=== PATIENT | female | born 1960 | race Caucasian/White ===

== ENCOUNTER → 2018-06-02 08:57 | Outpatient (CLI) | payer BC, SELFPAY ==
--- NOTE | 2018-06-02 09:03 | US_ITS ---
STUDY: THYROID ULTRASOUND REASON FOR EXAM: Female, 58 years old. Thyroid enlargement TECHNIQUE: Ultrasound evaluation of the thyroid was performed with real-time and static weber-scale imaging. COMPARISON: 12/04/2014 FINDINGS: RIGHT LOBE: The right lobe of the thyroid gland measures 4.9 x 1.7 x 1.7 cm. There is a homogeneous echotexture. There are no demonstrated solid, cystic or complex lesions. LEFT LOBE: The left lobe of the thyroid gland measures 5.2 x 1.4 x 1.0 cm. There is a 3 mm anechoic cyst of the inferior left thyroid lobe is stable.. There are no demonstrated solid, cystic or complex lesions. ISTHMUS: The isthmus measures 4 mm. The regional lymph nodes are normal. US/Thyroid IMPRESSION: 1. Stable exam. No new or enlarging thyroid cyst/nodule. 2. Stable 3 mm left thyroid colloidal cyst. 3. Mild thyromegaly. Electronically Signed: Rajesh Romero MD at 11:21 EDT , Service support ,
== END ==
PROVIDERS: Family Provider Internal Medicine; PCP Internal Medicine; Referring Provider Internal Medicine; Visit Provider Internal Medicine
DX: E04.9 Nontoxic goiter, unspecified (principal)
CPT/HCPCS: 76536

== ENCOUNTER → 2019-02-07 08:41 | Outpatient (CLI) | payer BC, SELFPAY ==
--- NOTE | 2019-02-07 08:45 | BI_ITS ---
MAMMOGRAPHY - UNILATERAL DIAGNOSTIC: LEFT BREAST REASON FOR EXAM: Female, 58 years old. Six-month follow-up examination for nodule in the left breast. PERTINENT HISTORY: Non-contributory. TECHNIQUE: Digital unilateral breast bernice (3D mammographic acquisition) in the CC and MLO projections. 2-D mediolateral oblique (MLO) and craniocaudad (CC) views of both breasts were obtained. CAD: Full Field Digital Mammography with Computer Added Detection was performed. COMPARISON: Comparison is made with prior outside examination of May 30, 2018. FINDINGS: Breast Composition: There are scattered areas of fibroglandular density. There are no dominant masses or suspicious calcifications. No other significant abnormalities are identified. BI/DIAG MAMM W/CAD, UNILAT IMPRESSION: Negative unilateral diagnostic mammogram. Correlation with ultrasound of the lateral aspect of the left breast is recommended for further evaluation. ASSESSMENT CATEGORY: BIRADS Category 0: Incomplete. Need additional imaging evaluation. A letter regarding these results will be sent to the patient by the facility within 30 days. Approximately 10% of breast cancers are not detected by mammography. A normal mammogram should not delay biopsy of a clinically suspicious abnormality. Electronically Signed: Yonny Hutner, at 10:33 EST , Service support ,
--- NOTE | 2019-02-07 08:45 | US_ITS ---
STUDY: ULTRASOUND BREAST - LEFT REASON FOR EXAM: Female, 58 years old. Abnormal screening mammogram. TECHNIQUE: Axial and longitudinal images of the LEFT breast were performed with a high resolution ultrasound transducer. # OF IMAGES: 56 COMPARISON: Comparison is made with prior mammogram dated February 07, 2019. FINDINGS: LEFT Breast: The lateral half of the left breast was examined by ultrasound. There is homogeneous fibroglandular tissue. No sonographic abnormality is seen. US/Breast Limited Unilateral IMPRESSION: No sonographic abnormality is seen. ASSESSMENT CATEGORY: BIRADS Category 1: Negative. A letter regarding these results will be sent to the patient by the facility within 30 days. Electronically Signed: Yonny Hunter, at 15:00 EST , Service support ,
== END ==
PROVIDERS: Family Provider Internal Medicine; PCP Internal Medicine; Referring Provider Surgery; Visit Provider Surgery
DX: N60.12 Diffuse cystic mastopathy of left breast (principal); N60.11 Diffuse cystic mastopathy of right breast; R92.8 Other abnormal and inconclusive findings on diagnostic imaging of breast
CPT/HCPCS: 76642; 77061; 77065; G0279

== ENCOUNTER → 2019-05-16 11:28 | Outpatient (CLI) | payer BC, SELFPAY ==
[2019-05-16 11:35] LABS: Absolute Lymphocyte Count 1.69 X10^3/uL (0.83-4.51); Absolute Neutrophil Count 4.6 X10^3/uL (2.0-7.7); Basophil# 0.03 X10^3/uL; Basophil% 0.4 % (0-1); Eosinophil# 0.19 X10^3/uL; Eosinophils% 2.7 % (0-5); Hematocrit 44.5 % (37-47); Lymphocyte # 1.69 X10^3/ul (4.0); Mean Corp Hgb Conc 31.5 g/dL (32-36); Mean Corpuscular Hgb 27.7 pg (27.0-32.0); Mean Corpuscular Volume 88.1 fL (81-99); Mean Platelet Vol. 11.3 fl (6.2-12.0); Monocyte# 0.54 X10^3/uL; Monocyte% 7.7 % (0-10); NRBC Flagged by Analyzer 0 % (0-5); Neutrophil # 4.56 X10^3/uL (2.7-7.7); Neutrophil % 64.9 % (47-70); Platelet Count 239 K/mm3 (150-450); RBC Distribution Width CV 14.5 % (11.6-14.6); RBC Distribution Width SD 46.5 fl (35.1-43.9); Red Blood Count 5.05 M/mm3 (4.2-5.4)
--- NOTE | 2019-05-16 11:40 | CT_ITS ---
STUDY: CT ABDOMEN AND PELVIS WITH CONTRAST REASON FOR EXAM: Female, 59 years old. RLQ PAIN X 2 DAYS RADIATION DOSAGE (If Supplied By Facility): CTDIvol = ( 16.29 ) mGy, DLP = ( 1196.49 ) mGycm COMPARISON: None TECHNIQUE: A CT scan of the abdomen and pelvis was performed with IV contrast contrast administration. Oral contrast was also administered. Coronal and sagittal reconstruction images were reviewed. This exam was performed according to our departmental dose-optimization program, which includes automated exposure control, adjustment of the mA and/or kV according to patient size and/or use of iterative reconstruction technique. FINDINGS: The lung bases and the base of the heart are normal. The liver is normal.The spleen is normal.The adrenal glands are normalThe head, body, and tail of the pancreas are normal. The right and left kidneys were examined and appear to be normal. Both ureters appear to be normal, and no obstructive uropathy is identified. The abdominal aortal is normal along its course and distribution. No paraortic lymphadenopathy is seen. No abdominal masses or lesions are seen. The CT scan of the pelvis was then reviewed. The common iliac vessels, external iliac vessels, and common femoral vessels are normal along their course and distribution No pelvis masses or lesions are seen. The appendix is abnormal and measures 1.4 cm in maximal dimension. There is fluid noted within the central portions of the appendix and these findings are consistent with acute appendicitis. No pericecal inflammatory reaction is seen. Bone scanning windows of the lumbar spine and pelvis were reviewed in the coronal and sagittal planes and appear to be normal. CT/Abdomen/Pelvis WITH Contrast IMPRESSION: Acute appendicitis Electronically Signed: Urban Casillas, at 14:30 EST Tel , Service support ,
[2019-05-16 11:43] LABS: Erythrocyte Sedimentation Rate 30 mm/hr (0-30)
[2019-05-16 11:46] LABS: ALB/GLOB Ratio 1.1 RATIO (0.9-2.4); AST(SGOT) 15 U/L (15-37); Alanine Aminotransfer ALT/SGPT 29 U/L (13-56); Alkaline Phosphatase 98 U/L (45-117); Anion Gap 5 (5-15); BUN 18 mg/dL (7-18); BUN/Creat Ratio 14.5 RATIO (10-20); Calcium,Total 9.2 mg/dL (8.5-10.1); Chloride 103 mmol/L (98-107); Creatinine, Serum 1.24 mg/dL (0.55-1.02); EST Glomerular Filtration Rate 47 mL/min (>60); Est Glom Filt Rate - Afr Amer 57 mL/min (>60); Globulin 3.5 g/dL (2.2-4.2); Glucose 88 mg/dL (74-106); Potassium 3.5 mmol/L (3.5-5.1); Protein, Total 7.5 g/dL (6.4-8.2); Sodium Level 139 mmol/L (136-145)
== END ==
PROVIDERS: PCP Internal Medicine; Referring Provider Internal Medicine; Visit Provider Internal Medicine
DX: R10.31 Right lower quadrant pain (principal)
CPT/HCPCS: 74177; 80053; 85025; 85652; 86140; Q9967

== ENCOUNTER 2019-05-16 15:05 | Observation (INO) | payer BC, SELFPAY ==
[2019-05-16] VITALS (9 sets, daily range): BP systolic 97–142; BP diastolic 53–86; PULSE 53–82; RESP 16–18; TEMP 35.8–36.8; O2SAT 94–98; BMI 34.1; BMI 34.8
--- NOTE | 2019-05-16 15:33 | EKG12_ITS ---
Test Reason : PRE OP Blood Pressure : / mmHG Vent. Rate : 062 BPM Atrial Rate : 062 BPM P-R Int : 146 ms QRS Dur : 092 ms QT Int : 426 ms P-R-T Axes : 036 -08 032 degrees QTc Int : 432 ms Normal sinus rhythm Incomplete left bundle branch block Confirmed by RAUL FORBES, DANA ([id number]), online editor BOBBY PICKENS ([id number]) on 05/20/2019 9:50:24 AM Referred By: KWAME Confirmed By:DANA CARTER MD
--- NOTE | 2019-05-16 15:35 | ED.VISSUMM ---
- ER Visit Summary Date of Service: 05/16/19 Chief Complaint: Abdominal pain History of Present Illness: The patient is a 59 F presenting with abdominal pain. She states this started on Monday. She has had abdominal pain and nausea. She denies vomiting or diarrhea. Denies fever. She had a routine visit scheduled with her PCP today. She had abdominal pain at that time and a CT scan was ordered as an outpatient. CT abdomen pelvis shows acute appendicitis. She was then sent to the ED for further evaluation. Physical Examination: Vitals are stable. Patient is afebrile. Alert no acute distress. HEENT exam is unremarkable. Neck is supple. Lungs are clear and equal bilaterally. Heart is regular rate and rhythm. Abdomen is soft right lower quadrant tenderness with no rebound or guarding Extremities are unremarkable. Skin is warm and dry. No focal neurologic deficit. Remainder of exam is unremarkable. Emergency Department Course and Treatment: Patient was given morphine, Zofran, and Zosyn. CT with contrast shows acute appendicitis. Labs are pending. Discussed with Dr. Kitchen and Dr. Marquez. Patient will be admitted. Disposition: Admission Impression: Acute appendicitis This note was generated with [employer] dictation software. It may contain incorrect words, spelling, and punctuation that were not noted in review of the chart prior to signing ED Disposition - Plan for ED Patient: Referrals: Oralia Kitchen DO [Primary Care Provider] -
[2019-05-16] MEDS: Morphine 4 MG/ML Syringe IV (15:59)
[2019-05-16] MEDS: Ondansetron 4 MG/2 ML Vial IV (15:59)
[2019-05-16 16:20] LABS: Absolute Lymphocyte Count 1.78 X10^3/uL (0.83-4.51); Basophil# 0.03 X10^3/uL; Basophil% 0.5 % (0-1); Eosinophil# 0.16 X10^3/uL; Eosinophils% 2.5 % (0-5); Hematocrit 42.5 % (37-47); Hemoglobin 13.7 g/dL (12.0-15.0); Lymphocyte # 1.78 X10^3/ul (4.0); Lymphocyte % 27.6 % (19-41); Mean Corp Hgb Conc 32.2 g/dL (32-36); Mean Corpuscular Hgb 28.6 pg (27.0-32.0); Mean Corpuscular Volume 88.7 fL (81-99); Mean Platelet Vol. 10.9 fl (6.2-12.0); Monocyte# 0.46 X10^3/uL; Monocyte% 7.1 % (0-10); NRBC Flagged by Analyzer 0 % (0-5); Platelet Count 225 K/mm3 (150-450); RBC Distribution Width CV 14.2 % (11.6-14.6); RBC Distribution Width SD 45.8 fl (35.1-43.9); Red Blood Count 4.79 M/mm3 (4.2-5.4); White Blood Count 6.5 K/mm3 (4.4-11.0)
[2019-05-16 16:26] LABS: Anion Gap 6 (5-15); BUN 18 mg/dL (7-18); BUN/Creat Ratio 15.4 RATIO (10-20); Calcium,Total 9.3 mg/dL (8.5-10.1); Chloride 103 mmol/L (98-107); Creatinine, Serum 1.17 mg/dL (0.55-1.02); EST Glomerular Filtration Rate 50 mL/min (>60); Est Glom Filt Rate - Afr Amer 61 mL/min (>60); Estimated Creatinine Clearance 47.87 ml/min; Glucose 83 mg/dL (74-106); Potassium 3.3 mmol/L (3.5-5.1); Sodium Level 138 mmol/L (136-145)
--- NOTE | 2019-05-16 16:44 | ED.RN ---
called report to A/C. ok to bring pt. Dr. Bruno has not seen yet.
--- NOTE | 2019-05-16 17:09 | PCM.HP.STD ---
History of Present Illness Date of Admission: 05/16/19 The patient is a 59 year old F started having epigastric abdominal pain starting Monday night did continue yesterday but did move to the right lower quadrant. Patient rated the pain a 6/10. Patient did go to her PCPs office where labs were drawn and patient had a CT which was ordered. CT abdomen pelvis was consistent with acute appendicitis, with blood counts within normal range. Patient was sent to the ER. Patient was given Zosyn IV in the ER. Patient states she had some nausea yesterday denies any nausea currently. Patient's white blood count still within normal limits. Past Medical History Allergies Sulfa (Sulfonamide Antibiotics) Allergy (Verified 05/16/19 15:05) Hives Home Medications: Ambulatory Orders Medication Instructions Recorded Albuterol IH (ProAir) [Proair Hfa] 1 - 2 puff INHALATION Q6H PRN 05/16/19 Esomeprazole Mag Trihydrate 20 mg PO DAILY 05/16/19 [Nexium] Hydrochlorothiazide 12.5 mg PO DAILY 05/16/19 L.acidoph,Paracasei, B.lactis 1 cap PO DAILY 05/16/19 [Probiotic] Loratadine [Claritin] 10 mg PO DAILY 05/16/19 Losartan Potassium [Cozaar] 50 mg PO DAILY 05/16/19 Montelukast Sodium [Singulair] 10 mg PO QHS 05/16/19 Surgical History: - - tubal ligation Psychiatric History: No pertinent psych hx 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 Smoking Status: Never smoker - *Family History Maternal History Items: No pertinent history VTE Information - Inpt Only VTE Present on Admission: Yes VTE Mechan Device Prophylaxis: SCD's - Physical Exam Vitals/I&O's: Vital Signs Temp Pulse Resp BP Pulse Ox 98.1 F 68 16 108/54 L 98 05/16/19 16:34 05/16/19 16:34 05/16/19 16:34 05/16/19 16:34 05/16/19 16:34 Oxygen Delivery Method Room Air Weight: 211 lb 10.3 oz Body Mass Index (BMI) 34.1 Intake and Output for Last 24 Hours 05/14/19 05/15/19 05/16/19 23:59 23:59 23:59 Intake Total 50 / 50 Balance 50 / 50 General: Alert, Oriented x3, Cooperative, No apparent distress HEENT: Atraumatic Lungs: Normal air movement Cardiovascular: Regular rate Abdomen: Soft, Non-Distended, Tender - Right abdomen greatest in the right lower quadrant, no peritoneal signs Extremities: No clubbing, No cyanosis, No edema Neurological: Cranial nerves II-XII grossly intact Psych/Mental Status: Normal Affect Laboratory Results 05/16/19 16:00: WBC 6.5, RBC 4.79, Hgb 13.7, Hct 42.5, MCV 88.7, MCH 28.6, MCHC 32.2, RDW Std Deviation 45.8 H, RDW Coeff of John 14.2, Plt Count 225, MPV 10.9, Immature Gran % (Auto) 0.300, Neut % (Auto) 62.0, Lymph % (Auto) 27.6, [place] % (Auto) 7.1, Eos % (Auto) 2.5, Baso % (Auto) 0.5, Absolute Neuts (auto) 4.0, Absolute Lymphs (auto) 1.78, Nucleated RBC % 0 05/16/19 16:00: Sodium 138, Potassium 3.3 L, Chloride 103, Carbon Dioxide 29.0, Anion Gap 6, BUN 18, Creatinine 1.17 H, Estim Creat Clear Calc 47.87, Est GFR (MDRD) Af Amer 61, Est GFR (MDRD) Non-Af 50 L, BUN/Creatinine Ratio 15.4, Glucose 83, Calcium 9.3 Assessment/Plan 59-year-old female with acute appendicitis 1. Discussed procedure laparoscopic appendectomy, possible open, possible bowel resection along with the risk but not limited to bleeding, infection/abscess, injury to another organ (small bowel, colon, etc.), adhesion, hernia at incision sites, and anesthesia. Patient and her no further questions at this time. Alvina Bruno M.D. Pager: [phone] [facility] [address] [place] [address], [address] [place] [address] Office: [phone]
--- NOTE | 2019-05-16 17:10 | APP_PTH ---
PATIENT: ELIER [place] LOC: [facility] U#:[id number] AGE/SX: 59/F ROOM: [facility] RE05/16/[address]: Dr. Alvina Bruno MD : 1960 BED: 1 DIS: 05/17/2019 SPEC #: [id number] RECD: 05/17/19 10:01 STATUS: ALEXA REArlyn #: [id number] AILYN: 05/16/19 17:[address]: Alvina Bruno DEPT: SURGICAL PATHOLOGY RECD BY: Krishna Sawyer ENTERED: 05/17/19 11:30 SP TYPE: APPENDIX OTHR DR: Dr. Oralia Kitchen, DO Tissues: Appendix, NOS Procedures: Surgery Specimen Level III HEADER OPERATION: Laparoscopic appendectomy PRE-OP DIAGNOSIS: Acute appendicitis TISSUE SUBMITTED: Appendix MICROSCOPIC DIAGNOSIS Appendix, appendectomy: Acute appendicitis and periappendicitis. SJ:constantino 3/2/20 MICROSCOPIC DESCRIPTION Slides are reviewed. GROSS DESCRIPTION Received is one container labeled with the patient's name and designated appendix. The specimen consists of an appendix measuring 7 cm in length and up to 1.3 cm in diameter. The attached periappendiceal adipose tissue measures up to 3 cm in width. The serosa is congested. No obvious perforation is identified. The lumen is filled with grayish turbid fluid. No fecalith is identified. Multi Craft Maintenance Technician sections are submitted in one cassette. / SJ:constantino 05/17/19 TC:2 [facility]: [id number]
[2019-05-16] MEDS: Bupiv/Epi 0.5% Mpf 30 ML Vial (18:31)
--- NOTE | 2019-05-16 18:39 | PCM.OPRPT ---
Report of Operation Date of Procedure: 05/16/19 Pre-Operative Diagnosis: Acute appendicitis Post-Operative Diagnosis: Same Surgery/Procedure Performed:: Laparoscopic appendectomy Type of Anesthesia:: General/Supplemental Anesthesiologist: Uziel Sylvester Special Medications: Zosyn 3.375 g IV x1 given in the ER for acute appendicitis Specimen's removed: Appendix Estimated Blood Loss (mL): < 10 CC Fluids Replaced: 300 CC Description of Procedure: Indications: 59-year-old FEmale presented to the ER with new right lower quadrant pain this morning. On workup she was found to have acute appendicitis on CT and a white blood cell count within normal limits. Patient was started on antibiotics in the ER for acute appendicitis-Zosyn IV x1 Description of the procedure: The patient was placed on operating table in supine position. General anesthesia was induced. A timeout was completed verifying correct patient, procedure, position and special equipment prior to beginning procedure. Abdomen was prepped and draped in usual sterile fashion. Incision was made in the natural skin line above the umbilicus with a 15 blade scalpel. The fascia was elevated and incised. Entry into the peritoneum was confirmed visually and no bowel was noted in the vicinity of the incision. The Turner trocar was placed under direct vision. Abdomen insufflated with a pressure of 12-15 mmHg. Patient tolerated insertion well. The scope was inserted and the abdomen inspected. No injuries from initial trocar placement were noted. Minimal amount of fluid was seen in the right lower quadrant. An direct visualization 2 -5 mm trocars were placed one above the symphysis pubis and below the hairline and one in the left lower quadrant lateral to the rectus muscle. Care is taken to avoid injury to the bladder and inferior epigastric vessels. The table was placed in Trendelenburg position with the right side elevated. The appendix was grasped with atraumatic grasper and elevated. It was noted to be inflamed. A window was developed in the mesoappendix at the point between the base of the appendix and the cecum. An endoscopic 45 mm linear cutting stapler blue load was then used to divide and staple the base of the appendix. Enseal was used to divide the mesoappendix The appendix was withdrawn into the Turner trocar after being placed endoscopically retrieval bag. Appendix was sent to pathology. The appendiceal stump was then irrigated and hemostasis was assured. Fluid was suctioned no other pathology was identified. Secondary trochars were removed under direct visualization. No bleeding was noted trocar sites. The laparoscope withdrawn and the umbilical trocar removed. The abdomen was allowed to collapse. Local anesthesia of 30 mL of 0.5% Marcaine was used at the incision sites. The umbilical trocar site was closed with the [id number] 0 Vicryl suture. The skin was closed up to clear sutures of 4-0 Monocryl and Steri-Strips. The patient was extubated. The patient tolerated the procedure well and was taken to the postanesthesia care unit in satisfactory condition. - Complications NONE
--- NOTE | 2019-05-16 18:43 | DCINST_ITS ---
Discharge Diet: Light diet - advance as tolerated Discharge Activity: May not drive while taking narcotic pain medications. May shower in (days): 1 - Okay to shower in 1 day from surgery Lifting Restrictions: No lifting greater than 20 pounds x 2 weeks Call your doctor if your incision/area has: Continuous Slow Oozing, Sudden Increased Bleeding, Increased Pain/ Swelling, Increased Redness, Foul Smelling Discharge, Swelling at the incision site Call your doctor if you observe: Fever of 101 or Higher Remove Dressing in (days):: 1 - Okay to remove OpSite tomorrow after shower, keep Steri-Strips on for 7 to 10 days if they do not fall off in 10 days okay to remove Additional Instructions: Okay to take ibuprofen 400-600 mg PO q6hr PRN along with the Tylenol #3's. Avoid Tylenol. Take all pain meds with food. Tylenol #3's can cause constipation recommend taking daily stool softener (i.e. Colace/docusate) while taking the pain meds. Recommend starting some (a couple doses) MiraLAX in 1 to 2 days if no bowel movement. If still no bowel movement on day recommend taking magnesium citrate half the bottle and waiting 4-6 hours if still no results take the other half the bottle. Allergies/Adverse Reactions: Allergies Sulfa (Sulfonamide Antibiotics) Allergy (Verified 05/16/19 15:05) Hives Medications to take at Discharge Acetaminophen/Codeine #3 [Tylenol#3] 1 - 2 tab PO Q4H PRN PRN 4 Days #20 tab 05/16/19 Albuterol IH (ProAir) [Proair Hfa] 1 - 2 puff INHALATION Q6H PRN 05/16/19 Esomeprazole Mag Trihydrate [Nexium] 20 mg PO DAILY 05/16/19 Hydrochlorothiazide 12.5 mg PO DAILY 05/16/19 L.acidoph,Paracasei, B.lactis [Probiotic] 1 cap PO DAILY 05/16/19 Loratadine [Claritin] 10 mg PO DAILY 05/16/19 Losartan Potassium [Cozaar] 50 mg PO DAILY 05/16/19 Montelukast Sodium [Singulair] 10 mg PO QHS 05/16/19 The following prescriptions were given: Acetaminophen/Codeine #3 [Tylenol#3] 1 - 2 tab PO Q4H PRN PRN 4 Days #20 tab PRN Reason: Pain Score 4-10 Transmission Status: Received by [id number] Primary Care Physician: Oralia Kitchen DO [Primary Care Provider] - Test Results: Test results from this visit will be discussed in further detail at your follow- up appointment, if applicable. Please Follow Up With: Alvina Bruno MD - Any concerns after 5 PM and on the weekends call [phone] When: Follow-up in the office in 2 weeks- call for an appointment [phone] Proposed Discharge Date: 05/16/19
--- NOTE | 2019-05-16 20:06 | CPS ---
Patient not in room at this time. Family instructed on use of IS.
[2019-05-16] MEDS: Lactated Ringers 1,000 ML 125 ML IV (22:41)
--- NOTE | 2019-05-17 01:40 | NURSING ---
Pt up to bathroom and attempted to urinate, only able to void 50cc at this time. Pt denies discomfort. Assisted back to bed.
[2019-05-17 04:15] VITALS: BP 123/61; PULSE 65; RESP 18; TEMP 36.8; O2SAT 95
[2019-05-17] MEDS: Acetaminophen/Codeine #3 Tablet PO (04:56)
[2019-05-17] MEDS: Lactated Ringers 1,000 ML 125 ML IV (06:14)
--- NOTE | 2019-05-17 07:36 | PCM.PN.SRG ---
Subjective: Patient tolerating clears, pain controlled, ambulating - Physical Exam Vitals/I&O's: Vital Signs Temp Pulse Resp BP Pulse Ox 98.2 F 65 18 123/61 H 95 05/17/19 04:15 05/17/19 04:15 05/17/19 04:15 05/17/19 04:15 05/17/19 04:15 Oxygen Delivery Method Room Air Weight: 215 lb 13.321 oz Body Mass Index (BMI) 34.8 Intake and Output for Last 24 Hours 05/15/19 05/16/19 05/17/19 23:59 23:59 23:59 Intake Total 50 / 200 1893.75 / 1893.75 Output Total 300 / 300 Balance 50 / 200 1593.75 / 1593.75 General: Alert, Oriented x3, Cooperative, No apparent distress HEENT: Atraumatic Lungs: Normal air movement Cardiovascular: Regular rate Abdomen: Soft, Distended - Mild, Tender - Near incisions clean dry and intact with op sites, no peritoneal signs Extremities: No clubbing, No cyanosis, No edema Neurological: Cranial nerves II-XII grossly intact Laboratory Results 05/16/19 16:00: WBC 6.5, RBC 4.79, Hgb 13.7, Hct 42.5, MCV 88.7, MCH 28.6, MCHC 32.2, RDW Std Deviation 45.8 H, RDW Coeff of John 14.2, Plt Count 225, MPV 10.9, Immature Gran % (Auto) 0.300, Neut % (Auto) 62.0, Lymph % (Auto) 27.6, [place] % (Auto) 7.1, Eos % (Auto) 2.5, Baso % (Auto) 0.5, Absolute Neuts (auto) 4.0, Absolute Lymphs (auto) 1.78, Nucleated RBC % 0 05/16/19 16:00: Sodium 138, Potassium 3.3 L, Chloride 103, Carbon Dioxide 29.0, Anion Gap 6, BUN 18, Creatinine 1.17 H, Estim Creat Clear Calc 47.87, Est GFR (MDRD) Af Amer 61, Est GFR (MDRD) Non-Af 50 L, BUN/Creatinine Ratio 15.4, Glucose 83, Calcium 9.3 Current Medications Acetaminophen/Codeine Phosphate (Tylenol#3) 1 - 2 tablet PO Q4H PRN PRN PRN Reason: Pain Score 4-10/10 Last Admin: 05/17/19 04:56 Dose: 1 tablet Documented by: Albuterol Sulfate (Ventolin Aerosols) 2.5 mg INHALATION Q4H PRN PRN PRN Reason: SOB/WEEZING Hydrochlorothiazide () 12.5 mg PO DAILY JESSICA Lactated Ringer's () 1,000 mls @ 125 mls/hr IV .Q8H JESSICA Last Admin: 05/17/19 06:14 Dose: 125 mls/hr Documented by: Sodium Chloride () 250 mls @ 15 mls/hr IV .[id number] PRN PRN Reason: Saline Flush Sodium Chloride () 250 mls @ 15 mls/hr IV .[id number] PRN PRN Reason: Additional IVPB Infusion Loratadine (Claritin) 10 mg PO DAILY [facility] Losartan Potassium (Cozaar) 50 mg PO DAILY [facility] Montelukast Sodium (Singulair) 10 mg PO QHS [facility] Morphine Sulfate () 2 - 4 mg IV Q2H PRN PRN PRN Reason: Pain Score 1-10/10 Morphine Sulfate () 2 - 4 mg IV Q2H PRN PRN PRN Reason: PAIN SCORE 1-10/10 Ondansetron HCl (Zofran) 4 mg IV Q6H PRN PRN PRN Reason: NAUSEA Pantoprazole Sodium (Protonix) 20 mg PO DAILY [facility] Sodium Chloride () 10 - 40 ml IV UD PRN PRN Reason: SALINE FLUSH Medical Necessity - Tobacco Use Smoking Status: Never smoker Assessment/Plan 59-year-old female with acute appendicitis postop day 1 laparoscopic appendectomy 1. Patient continues to do well will DC home, currently tolerating clears ambulating and pain controlled Alvina Bruno M.D. Pager: [phone] [facility] [address] [place] [address], [address] [place] [address] Office: [phone]
[2019-05-17 08:15] VITALS: BP 97/52; PULSE 72; RESP 16; TEMP 36.7; O2SAT 93
[2019-05-17 09:28] VITALS: BP 111/60; PULSE 83; O2SAT 94
[2019-05-17] MEDS: Pantoprazole Sodium 20 MG Tablet PO (09:29)
[2019-05-17] MEDS: hydroCHLOROthiazide 12.5mg 12.5 MG PO (09:29)
[2019-05-17] MEDS: Loratadine 10 MG Tablet PO (09:29)
[2019-05-17] MEDS: Losartan Potassium 50 MG Tablet PO (09:29)
--- NOTE | 2019-05-17 10:24 | PHA.DC.MC ---
Pharmacy Service has performed discharge medication reconciliation and counseling for this patient. 1. ACETAMINOPHEN/CODEINE #3 1-2T PO Q4H PRN PAIN 4-10 The patient's discharge medication list was reviewed for discrepancies and discrepancies were resolved. Home Medications Acetaminophen/Codeine #3 [Tylenol#3] 1 - 2 tab PO Q4H PRN PRN 4 Days #20 tab 05/16/19 Albuterol IH (ProAir) [Proair Hfa] 1 - 2 puff INHALATION Q6H PRN 05/16/19 Esomeprazole Mag Trihydrate [Nexium] 20 mg PO DAILY 05/16/19 Hydrochlorothiazide 12.5 mg PO DAILY 05/16/19 L.acidoph,Paracasei, B.lactis [Probiotic] 1 cap PO DAILY 05/16/19 Loratadine [Claritin] 10 mg PO DAILY 05/16/19 Losartan Potassium [Cozaar] 50 mg PO DAILY 05/16/19 Montelukast Sodium [Singulair] 10 mg PO QHS 05/16/19 The patient was counseled on the following discharge medications and changes in medications for homegoing were reviewed. The Reason for Use, instructions for use, and potential side effects were reviewed for all new medications. The patient's questions regarding all of their medications were answered. The patient was able to verbally demonstrate an understanding of their discharge medications.
== END 2019-05-17 07:38 | disposition home or self-care (01) ==
LOC: ED 15:50 → PCU 16:28
PROVIDERS: Admitting Provider Surgery; Emergency Provider Emergency Medicine; PCP Internal Medicine; Visit Provider Surgery
PROC: 0DTJ4ZZ Resection of Appendix, Percutaneous Endoscopic Approach (ICD-10-PCS; CPT 44970; principal; 2019-05-16 16:50)
DX: K35.80 Unspecified acute appendicitis (principal); J45.909 Unspecified asthma, uncomplicated; K21.9 Gastro-esophageal reflux disease without esophagitis; Z79.899 Other long term (current) drug therapy; I10 Essential (primary) hypertension
CPT/HCPCS: 00840; 44970; 80048; 85025; 88304; 93005; 96361; 96365; 96375; 99218; 99283; J7050; J7120; A4216; C1760; G0378; J2405

== ENCOUNTER → 2019-08-07 07:35 | Outpatient (CLI) | payer BC, SELFPAY ==
[2019-05-16 19:56] VITALS: BMI 34.8
--- NOTE | 2019-08-07 07:37 | BI_ITS ---
MAMMOGRAPHY - BILATERAL SCREENING REASON FOR EXAM: Female, 59 years old. Routine annual screening examination. PERTINENT HISTORY: Non-contributory. TECHNIQUE: Digital bilateral breast kellen (3D mammographic acquisition) in the CC and MLO projections. 2-D mediolateral oblique (MLO) and craniocaudad (CC) views of both breasts were obtained. CAD: Full Field Digital Mammography with Computer Added Detection was performed. COMPARISON: Comparison is made with prior examination dated February 07, 2019. FINDINGS: Breast Composition: There are scattered areas of fibroglandular density. There are no dominant masses or suspicious calcifications. No other significant abnormalities are identified. There has been no significant change since the prior study. BI/SCREEN MAMM (CAD) W/KELLEN BILAT IMPRESSION: Stable bilateral screening mammogram. Yearly follow-up mammogram recommended. (A) ASSESSMENT CATEGORY: BIRADS Category 1: Negative. A letter regarding these results will be sent to the patient by the facility within 30 days. Approximately 10% of breast cancers are not detected by mammography. A normal mammogram should not delay biopsy of a clinically suspicious abnormality. [id number] Electronically Signed: Yonny Hunter, at 9:39 EDT , Service support ,
== END ==
PROVIDERS: PCP Internal Medicine; Referring Provider Internal Medicine; Visit Provider Internal Medicine
DX: Z12.31 Encounter for screening mammogram for malignant neoplasm of breast (principal)
CPT/HCPCS: 77063; 77067

== ENCOUNTER 2020-05-28 08:11 | Outpatient (RCR) | payer BC, SELFPAY ==
[2019-05-16 19:56] VITALS: BMI 34.8
[2020-05-28] MEDS: COVID-19 VACC, MRNA(PFIZER)/PF 30 MCG/0.3 ML SYRINGE IM (18:41)
[2020-06-18] MEDS: COVID-19 VACC, MRNA(PFIZER)/PF 30 MCG/0.3 ML SYRINGE IM (18:37)
== END 2020-08-25 23:59 ==
LOC: IMMUN 08:11
PROVIDERS: PCP Internal Medicine; Referring Provider Family Medicine; Visit Provider Family Medicine
DX: Z23 Encounter for immunization (principal)
CPT/HCPCS: 0001A; 0002A; 91300

== ENCOUNTER → 2022-03-30 | Outpatient (CLI) | payer BC, SELFPAY ==
--- NOTE | 2022-03-30 09:26 | BI_ITS ---
MAMMOGRAPHY - BILATERAL SCREENING REASON FOR EXAM: Female, 61 years old. Routine annual screening examination. PERTINENT HISTORY: Non-contributory. TECHNIQUE: Digital bilateral breast kellen (3D mammographic acquisition) in the CC and MLO projections. 2-D mediolateral oblique (MLO) and craniocaudad (CC) views of both breasts were obtained. CAD: Full Field Digital Mammography with Computer Added Detection was performed. COMPARISON: Comparison is made with prior study of 08/06/2021 and 02/07/2019. FINDINGS: Breast Composition: There are scattered areas of fibroglandular density. There are no dominant masses or suspicious calcifications. Stable small benign-appearing bilateral axillary lymph nodes. No other significant abnormalities are identified. There has been no significant change since the prior study. BI/SCRN MAMM (CAD)W/KELLEN BILAT IMPRESSION: Stable bilateral screening mammogram. Yearly follow-up mammogram recommended. (A) ASSESSMENT CATEGORY: BIRADS Category 2: Benign. A letter regarding these results will be sent to the patient by the facility within 30 days. Approximately 10% of breast cancers are not detected by mammography. A normal mammogram should not delay biopsy of a clinically suspicious abnormality. [id number] Electronically Signed: Yonny Hunter MD at 11:40 EST ,
--- NOTE | 2022-03-30 09:32 | BD_ITS ---
STUDY: DUAL ENERGY X-RAY ABSORPTIOMETRY / DXA REASON FOR EXAM: Female, 61 years old. Z780 TECHNIQUE: Bone Mineral Density (BMD) measurements of lumbar spine and bilateral hips were obtained. COMPARISON: None. FINDINGS: Lumbar Spine (L1-L4): g/cm2 (1.072) / T-score (0.2) / Z-score (1.8) Findings are suggestive of normal bone density with a low fracture risk. Left Femur Total: g/cm2 (0.896) / T-score (-0.4) / Z-score (0.7) Left Femoral Neck: g/cm2 (0.774) / T-score (-0.7) / Z-score (0.7) Right Femur Total: g/cm2 (0.905) / T-score (-0.3) / Z-score (0.8) Right Femoral Neck: g/cm2 (0.766) / T-score (-0.7) / Z-score (0.7) BD/Dexa Bone Density Study IMPRESSION: The patient is considered normal as outlined below according to World Justino Organization (WHO) criteria with a low fracture risk. Reference Information: The T-score is the number of standard deviations above or below the standard which is normal for young adults at their peak bone mineral density. The World Health Organization (WHO) interprets the T-scores as follows: Above -1 Normal bone density Between -1 and -2.5 Osteopenia Equal to / or below -2.5 Osteoporosis As a practical clinical guideline, osteopenia may be graded as follows: Mild -1 through -1.5 Moderate -1.6 through -2.0 Severe -2.1 through -2.4 The Z-score is the number of standard deviations above or below age-matched controls. A Z-score of less than -1.5 would be considered abnormal. References: 1. NIH Osteoporosis and Related Bone Diseases www osteo.org 2. International Society for Clinical Densitometry www iscd.org 3. National Osteoporosis Foundation www nof.org Electronically Signed: Yonny Hunter MD at 9:55 EST ,
--- NOTE | 2022-03-30 09:34 | US_ITS ---
STUDY: THYROID ULTRASOUND REASON FOR EXAM: Female, 61 years old. THYROMEGALY TECHNIQUE: Ultrasound evaluation of the thyroid was performed with real-time and static weber-scale imaging. COMPARISON: Comparison is made with prior study dated 06/02/2018. FINDINGS: RIGHT LOBE: The right lobe of the thyroid gland measures 4.7 cm x 1.7 cm x 1.3 cm. There is a homogeneous echotexture. There are no demonstrated solid, cystic or complex lesions. LEFT LOBE: The left lobe of the thyroid gland is enlarged and measures 5.5 cm x 1.4 cm x 1 cm. There is a homogeneous echotexture. There is a 2 mm x 2 mm x 1 mm cyst in the upper pole of the left thyroid lobe. This is unchanged. ISTHMUS: The isthmus measures 3 mm. The regional lymph nodes are normal. US/Thyroid IMPRESSION: Stable examination. Mild enlargement of the left lobe of the thyroid. Electronically Signed: Yonny Hunter MD at 15:08 EST ,
== END | disposition home or self-care (01) ==
LOC: OPBD 09:22
PROVIDERS: PCP Internal Medicine; Referring Provider Internal Medicine; Visit Provider Internal Medicine
DX: Z78.0 Asymptomatic menopausal state (principal); Z12.31 Encounter for screening mammogram for malignant neoplasm of breast; E04.9 Nontoxic goiter, unspecified
CPT/HCPCS: 76536; 77063; 77067; 77080

== ENCOUNTER 2022-12-19 09:40 | Day surgery (SDC) | payer BC, SELFPAY ==
[2022-12-19] VITALS (7 sets, daily range): BP systolic 88–117; BP diastolic 61–83; PULSE 73–91; RESP 16; TEMP 36.2–36.7; O2SAT 97–99; BMI 34.9
--- NOTE | 2022-12-19 | GASB_PTH ---
PATIENT: ELIER NJ LOC: EN U#:[id number] AGE/SX: 62/F ROOM: RE12/19/[address]: Dr. Alvina Bruno MD : 1960 BED: DIS: 12/19/2022 SPEC #: [id number] RECD: 12/19/22 15:37 STATUS: ALEXA TAMARA #: [id number] AILYN: 12/19/22 00:[address]: Alvina Bruno DEPT: SURGICAL PATHOLOGY RECD BY: Su Talley ENTERED: 12/20/22 08:17 SP TYPE: Gastric Bx OTHR DR: Dr. Oralia Kitchen DO Tissues: A - Gastric mucous membrane B - Gastric mucous membrane C - Gastric mucous membrane D - Gastric mucous membrane E - Ascending colon Procedures: Special Stain Group II Surgery Specimen Level IV Alcian Blue/PAS (control) HEADER OPERATION: Colonoscopy polypectomy, EGD with biopsy PRE-OP DIAGNOSIS: Positive Cologuard test TISSUE SUBMITTED: A - Antrum biopsy for H. pylori and histology, B - Gastric polyp biopsy, C - Gastric polyp biopsy #2, D - Gastroesophageal junction biopsy, E - Distal ascending polyp MICROSCOPIC DIAGNOSIS A. Gastric antrum, biopsy: Mild chronic gastritis. See comment. B. Gastric polyp, biopsy: Suggestive of fundic gland polyp. C. Gastric polyp #2, biopsy: Fundic gland polyp. D. Gastroesophageal junction, biopsy: Mild chronic inflammation. Focal changes of reflux. No evidence of goblet cell metaplasia. See comment. E. Distal ascending colon polyp, biopsy: Hyperplastic polyp. AM:constantino 12/21/2022 COMMENT A. The results of immunohistochemistry for Helicobacter pylori will be reported separately ([id number]). D. Alcian blue/PAS stain with matched control supports the above diagnosis. MICROSCOPIC DESCRIPTION Slides are reviewed. GROSS DESCRIPTION A - Received in fixative is one container labeled with the patient's name and designated antrum biopsy. The specimen consists of one irregular fragment of light chong soft tissue that measures 0.5 x 0.2 x 0.1 cm. The specimen is totally submitted in one cassette. B - Received in fixative is one container labeled with the patient's name and designated gastric polyp biopsy. The specimen consists of multiple irregular fragments of light chong soft tissue that in aggregate measure 0.5 x 0.2 x 0.1 cm. The specimen is totally submitted in one cassette. C - Received in fixative is one container labeled with the patient's name and designated gastric polyp biopsy #2. The specimen consists of multiple irregular fragments of light chong soft tissue that in aggregate measure 1.2 x 0.3 x 0.1 cm. The specimen is totally submitted in one cassette. D - Received in fixative is one container labeled with the patient's name and designated GE junction biopsy. The specimen consists of one irregular fragment of light chong soft tissue that measures 0.3 x 0.3 x 0.1 cm. The specimen is totally submitted in one cassette. E - Received in fixative is one container labeled with the patient's name and designated distal ascending polyp. The specimen consists of one irregular fragment of light chong soft tissue that measures 0.5 x 0.4 x 0.1 cm. The specimen is totally submitted in one cassette. / SJ:rg 12/20/2022 TC:3 CPT: 68735 x5, 16051
--- NOTE | 2022-12-19 10:02 | HP.PCM_ITS ---
History and Physical Date of Admission: 12/19/22 Date of Service: 11/24/22 MR#: [id number] Acct: [id number] Name: ELIER NJ Rep #: [id number] : 1960 Provider: Dr. Alvina Bruno MD Age/Sex: 62/F Location: [facility] Status: Signed Intake Vital Signs 11/25/2307:39 Weight: 224 lb BP 131/85 H Blood Pressure Location Rt brachial Position Sitting Respiration 17 Pulse 81 Pulse Source Monitor Temp 97.1 F L Temp Source Temporal Pulse Oximetry (%) 95 Oxygen Delivery Method room air Intake Visit Reasons: POSITIVE COLOGUARD Chief Complaint: positive cologuard Allergies acetaminophen [From Tylenol-Codeine #3] Allergy (Mild, Verified 11/24/22 08:45) Rashcodeine [From Tylenol-Codeine #3] Allergy (Mild, Verified 11/24/22 08:45) RashSulfa (Sulfonamide Antibiotics) Allergy (Verified 11/24/22 08:45) Hives Medications L.acidoph, paracasei,B. lactis 10 billion cell capsule 1 cap PO DAILY immune health 05/16/19 [History Confirmed 11/24/22] albuterol sulfate 90 mcg/actuation aerosol inhaler 1 - 2 puff inhalation Q6H PRN Sob &/Or Wheezing 05/16/19 [History Confirmed 11/24/22] esomeprazole magnesium 20 mg capsule,delayed release 20 mg PO DAILY gerd 05/16/19 [History Confirmed 11/24/22] hydrochlorothiazide 12.5 mg tablet 12.5 mg PO DAILY bp 05/16/19 [History Confirmed 11/24/22] loratadine 10 mg tablet 10 mg PO DAILY allergies 05/16/19 [History Confirmed 11/24/22] losartan 50 mg tablet 50 mg PO DAILY bp 05/16/19 [History Confirmed 11/24/22] montelukast 10 mg tablet 10 mg PO QHS 05/16/19 [History Confirmed 11/24/22] PFSH Medical History (Updated 11/24/22 @ 08:38 by Re Baugh) Acid reflux Allergies Appendicitis HTN (hypertension) Surgical History S/P appendectomy Social History (Updated 11/24/22 @ 08:39 by Re Baugh) Smoking Status: Never smoker alcohol intake: current substance use type: does not use HPI HPI HPI: 62-year-old female presents due to positive Cologuard. Patient had a colonoscopy about 23 years ago which was negative. Patient denies any family history of colon cancer. Patient does have reflux which she does take Nexium 20 mg she has symptoms a couple times a month and does have a dry cough that she notices. Patient buys the Nexium [id number]. Patient has never had an EGD. ROS General General: Yes fatigue; No weight change, appetite, colon cancer, breast cancer or weakness HEENT HEENT: Yes eye surgery; No difficulty swallowing, eye injury, swollen glands or hoarseness Endo Endocrine: No thyroid disease, diabetes mellitus, thyroid cancer, Hair loss, heat intolerance or cold intolerance Skin Skin: No rash or changing moles Musc Musculoskeletal: Yes back problems; No arthritis, rheumatoid arthritis, gout or joint pain Cardio Cardiovascular: Yes high blood pressure; No murmur, pacemaker, heart disease, atrial fibrillation, heart attack, heart stent, palpitations, shortness of breat with exertion or chest pain Psych Psychiatric: No depression, anxiety or hearing voices Resp Respiratory: Yes shortness of breath, No sleep apnea, Yes cough, No COPD, Yes asthma, No emphysema and No wheezing Gastro Gastrointestinal: Yes abdominal pain, No nausea or vomiting, Yes diarrhea, Yes constipation, No blood in stool, Yes acid reflux, No hemorrhoids, No ulcers, No gallbladder problem and No black,tarry stools Stephen Hematologic: No blood thinners, No blood disorders, No bleeding, No anemia and No blood clots Neuro Neurologic: No system reviewed and no additional complaints, except as documented, No as per HPI, No abnormal gait, No abnormal hearing, No abnormal movements, No abnormal speech, No behavioral changes, No burning sensations, No confusion, No convulsions, No disequilibrium, No dizziness, No localized weakness, No frequent falls, No headache(s), No lack of coordination, No loss of vision, No memory loss, Yes numbness, No other visual disturbances, No radicular pain, No restless legs, No sensory deficit, No syncope, Yes tingling, No tremor(s), No weakness and No other Exam Const General: cooperative, healthy appearing, comfortable and no acute distress [facility] Head: normocephalic and atraumatic Neck Neck: supple Resp Effort & Inspection: normal respiratory effort Cardio Rate: regular rate GI Inspection: non-distended Palpation: soft, no hernias and nontender Skin General: no rashes or lesions noted Neuro General: CN's II-XI intact bilaterally Extrem General: normal to inspection Psych Mental Status: mental status grossly normal Attitude: cooperative Assessment and Plan Assessment and Plan (1) Positive colorectal cancer screening using Cologuard test: Status: Acute Plan We will also have patient increase her Nexium to 40 mg for the next few weeks to see if this helps with the symptoms as well. I have discussed the above with the patient. I have offered the patient EGD & colonoscopy for evaluation. I have explained the risks/benefits of the procedure and described the procedure. I have discussed the risks with the patient, including but not limited to: infection, bleeding, perforation of the GI tract requiring emergency surgery, inability to complete the procedure, injury to any internal organs, complications of anesthesia, etc. - the patient understands and agrees to proceed. I have answered all the patient's questions to the patient's satisfaction and the patient has no further questions. The patient has been given instructions for the colon cleansing preparation. 1 day of clears, MiraLAX Dulcolax split prep. Alvina Bruno M.D. Pager: [phone] [facility] [address] [place] [address], [address] [place] [address] Office: [phone] Coding Level of Care Code Off vis,est,level 3 Diagnoses Positive colorectal cancer screening using Cologuard test R19.5 11/24/22 1350 <Electronically signed by Alvina Bruno MD> Date Alvina Bruno MD
[2022-12-19] MEDS: Lactated Ringers 1,000 ML 15 ML IV (10:21)
--- NOTE | 2022-12-19 10:45 | IMM_PTH ---
PATIENT: ELIER NJ LOC: EN U#:[id number] AGE/SX: 62/F ROOM: RE12/19/[address]: Dr. Alvina Bruno MD : 1960 BED: DIS: 12/19/2022 SPEC #: [id number] RECD: 12/20/22 09:52 STATUS: ALEXA REQ #: [id number] AILYN: 12/19/22 10:[address]: Alvina Bruno DEPT: IMMUNOHISTOCHEMISTRY RECD BY: Shana De Santiago ENTERED: 12/20/22 09:52 SP TYPE: IMMUNO OTHR DR: Dr. Oralia Kitchen, Tissues: A - Stomach, NOS Procedures: H Pylori (initial) PHYSICIAN & INSTITUTION [place] [address] SPECIMEN INFORMATION: Tissue Source: A - Antrum biopsy Clinical Info: Positive Cologuard test Specimen Number: [id number] CPT code: 72827 METHODOLOGY: Deparaffinized sections of prefer/formalin-fixed tissue or PAP/DQ stained slides are incubated with monoclonal/polyclonal antibodies/oligonucleotide probes. Localization is made via biotin free immunoperoxidase method. Appropriate controls are performed and reacted as expected. Results on target cell population are indicated in the following table: RESULTS: ANTIBODY / CLONE RESULT Block A H Pylori (polyclonal) negative These tests were developed and their performance characteristics determined by [facility]. They may not have been cleared or approved by the U.S. Food and Drug Administration. The FDA has determined that such clearance or approval is not necessary. The above immunohistochemical/dualISH markers are ordered and reviewed by the Pathologist. INTERPRETATION: A. Antrum, biopsy: Negative for Helicobacter pylori organisms. AM:constantino 12/22/2022
--- NOTE | 2022-12-19 11:12 | OP.EGD_ITS ---
Patient Name: Kenzie Chapman Procedure Date: 12/19/2022 10:18 AM Date of : 1960 Age: 62 Procedure: Upper GI endoscopy Indications: Heartburn Providers: Alvina Bruno MD Medicines: Monitored Anesthesia Care Patient Profile: This is a 62 year old female. Complications: No immediate complications. Procedure: Pre-Anesthesia Assessment: - Prior to the procedure, a History and Physical was performed, and patient medications and allergies were reviewed. The patient's tolerance of previous anesthesia was also reviewed. The risks and benefits of the procedure and the sedation options and risks were discussed with the patient. All questions were answered, and informed consent was obtained. Prior Anticoagulants: The patient has taken no anticoagulant or antiplatelet agents. ASA Grade Assessment: Per anesthesia. After reviewing the risks and benefits, the patient was deemed in satisfactory condition to undergo the procedure. After obtaining informed consent, the endoscope was passed under direct vision. Throughout the procedure, the patient's blood pressure, pulse, and oxygen saturations were monitored continuously. The colonoscope was introduced through the mouth, and advanced to the second part of duodenum. The upper GI endoscopy was accomplished without difficulty. The patient tolerated the procedure well. Scope In: 10:32:39 AM Scope Out: 10:41:38 AM Total Procedure Duration Time 0 hours 8 minutes 59 seconds Findings: The Z-line was irregular and was found 42 cm from the incisors. Biopsies were taken with a cold forceps for histology. The examined duodenum was normal. Mildly erythematous mucosa without bleeding was found in the gastric antrum. Biopsies were taken with a cold forceps for histology. Biopsies were taken with a cold forceps for Helicobacter pylori cultures. Multiple 3 to 9 mm pedunculated and sessile polyps with no bleeding and no stigmata of recent bleeding were found in the gastric body. The polyp was removed with a cold biopsy forceps. Resection and retrieval were complete. The cardia and gastric fundus were normal on retroflexion. Impression: - Z-line irregular, 42 cm from the incisors. Biopsied. - Normal examined duodenum. - Erythematous mucosa in the antrum. Biopsied. - Multiple gastric polyps. Resected and retrieved. Recommendation: - Await pathology results. - Discharge patient to home. - Resume previous diet. - Continue present medications. Procedure Code(s): --- Professional --- 55318, Esophagogastroduodenoscopy, flexible, transoral; with biopsy, single or multiple Diagnosis Code(s): --- Professional --- K22.89, Other specified disease of esophagus K31.89, Other diseases of stomach and duodenum K31.7, Polyp of stomach and duodenum R12, Heartburn CPT copyright 2021 [employer]. All rights reserved. The codes documented in this report are preliminary and upon school guidance counselor review may be revised to meet current compliance requirements. MD Alvina Farrell MD 12/19/2022 11:12:00 AM This report has been signed electronically. Number of Addenda: 0 Note Initiated On: 12/19/2022 10:18 AM
--- NOTE | 2022-12-19 11:12 | OP.CCLET_ITS ---
12/19/2022 Oralia Kitchen [address] [place] [address] Re : Upper GI endoscopy procedure for Kenzie Ari Dear Dr. Kitchen This procedure was performed on Monday, December 19, 2022. My impressions and recommendations are as follows: Impressions : - Z-line irregular, 42 cm from the incisors. Biopsied. - Normal examined duodenum. - Erythematous mucosa in the antrum. Biopsied. - Multiple gastric polyps. Resected and retrieved. Recommendations : - Await pathology results. - Discharge patient to home. - Resume previous diet. - Continue present medications. My findings are described in the full procedure note, which is enclosed. If I can be of further assistance, please feel free to contact me at Doctor phone number(s): , Work: . Sincerely, MD Alvina Farrell MD 12/19/2022 11:12:00 AM This report has been signed electronically.
--- NOTE | 2022-12-19 11:15 | OP.CCLET_ITS ---
12/19/2022 Oralia Kitchen [address] [place] [address] Re : Colonoscopy procedure for Kenzie Ari Dear Dr. Kitchen This procedure was performed on Monday, December 19, 2022. My impressions and recommendations are as follows: Impressions : - Hemorrhoids found on perianal exam. - Non-bleeding internal hemorrhoids. - One less than 5 mm polyp in the distal ascending colon, removed with a hot snare. Resected and retrieved. - Diverticulosis in the sigmoid colon. Recommendations : - Discharge patient to home. - High fiber diet. - Continue present medications. - Await pathology results. - Repeat colonoscopy in 3 - 5 years for surveillance of multiple polyps. My findings are described in the full procedure note, which is enclosed. If I can be of further assistance, please feel free to contact me at Doctor phone number(s): , Work: . Sincerely, MD Alvina Farrell MD 12/19/2022 11:15:26 AM This report has been signed electronically.
--- NOTE | 2022-12-19 11:15 | OP.COLON_ITS ---
Patient Name: Kenzie Chapman Procedure Date: 12/19/2022 10:42 AM Date of : 1960 Age: 62 Procedure: Colonoscopy Indications: Positive Cologuard test Providers: Alvina Bruno MD Medicines: Monitored Anesthesia Care Patient Profile: This is a 62 year old female. Last Colonoscopy: none. The patient's first colonoscopy is today. Complications: No immediate complications. Procedure: Pre-Anesthesia Assessment: - Prior to the procedure, a History and Physical was performed, and patient medications and allergies were reviewed. The patient's tolerance of previous anesthesia was also reviewed. The risks and benefits of the procedure and the sedation options and risks were discussed with the patient. All questions were answered, and informed consent was obtained. Prior Anticoagulants: The patient has taken no anticoagulant or antiplatelet agents. ASA Grade Assessment: Per anesthesia. After reviewing the risks and benefits, the patient was deemed in satisfactory condition to undergo the procedure. After I obtained informed consent, the scope was passed under direct vision. Throughout the procedure, the patient's blood pressure, pulse, and oxygen saturations were monitored continuously. The colonoscope was introduced through the anus and advanced to the cecum, identified by the appendiceal orifice, ileocecal valve and palpation. The colonoscopy was performed without difficulty. The patient tolerated the procedure well. The quality of the bowel preparation was good. Scope In: 10:43:34 AM Scope Withdrawal Time 0 hours 8 minutes 0 seconds Scope Out: 11:06:38 AM Total Procedure Duration Time 0 hours 23 minutes 4 seconds Findings: Hemorrhoids were found on perianal exam. Non-bleeding internal hemorrhoids were found. The hemorrhoids were Grade I (internal hemorrhoids that do not prolapse). A less than 5 mm polyp was found in the distal ascending colon. The polyp was sessile. The polyp was removed with a hot snare. Resection and retrieval were complete. Multiple small-mouthed diverticula were found in the sigmoid colon. Impression: - Hemorrhoids found on perianal exam. - Non-bleeding internal hemorrhoids. - One less than 5 mm polyp in the distal ascending colon, removed with a hot snare. Resected and retrieved. - Diverticulosis in the sigmoid colon. Recommendation: - Discharge patient to home. - High fiber diet. - Continue present medications. - Await pathology results. - Repeat colonoscopy in 3 - 5 years for surveillance of multiple polyps. Procedure Code(s): --- Professional --- 98681, Colonoscopy, flexible; with removal of tumor(s), polyp(s), or other lesion(s) by snare technique Diagnosis Code(s): --- Professional --- K64.0, First degree hemorrhoids D12.2, Benign neoplasm of ascending colon R19.5, Other fecal abnormalities K57.30, Diverticulosis of large intestine without perforation or abscess without bleeding CPT copyright 2021 [employer]. All rights reserved. The codes documented in this report are preliminary and upon remote coders review may be revised to meet current compliance requirements. MD Alvina Farrell MD 12/19/2022 11:15:26 AM This report has been signed electronically. Number of Addenda: 0 Note Initiated On: 12/19/2022 10:42 AM
== END 2022-12-19 12:09 | disposition home or self-care (01) ==
LOC: EN 09:41 → AC 09:43
PROVIDERS: PCP Internal Medicine; Referring Provider Internal Medicine; Visit Provider Surgery
PROC: 0DJD8ZZ Inspection of Lower Intestinal Tract, Via Natural or Artificial Opening Endoscopic (ICD-10-PCS; CPT 45378; principal; 2022-12-19 10:40)
DX: K29.50 Unspecified chronic gastritis without bleeding (principal); K57.30 Diverticulosis of large intestine without perforation or abscess without bleeding; K64.0 First degree hemorrhoids; K31.7 Polyp of stomach and duodenum; I10 Essential (primary) hypertension; K21.9 Gastro-esophageal reflux disease without esophagitis; K63.5 Polyp of colon; J45.909 Unspecified asthma, uncomplicated; K31.89 Other diseases of stomach and duodenum; Z79.899 Other long term (current) drug therapy
CPT/HCPCS: 45385; 43239; 88305; 88313; 88342; J7120; J2405

== ENCOUNTER → 2023-05-23 | Outpatient (CLI) | payer BC, SELFPAY ==
--- NOTE | 2023-05-23 07:49 | BI_ITS ---
MAMMOGRAPHY - BILATERAL SCREENING 3-D TOMOSYNTHESIS REASON FOR EXAM: Female, 63 years old. screening PERTINENT HISTORY: No significant family history. TECHNIQUE: 2-D mammograms and 3-D Tomosynthesis of the breast (s) were performed. CAD was performed. COMPARISON: 03/30/2022 FINDINGS: The breast composition is composed of scattered fibroglandular density. Scattered benign calcifications are seen. No dense spiculated masses or suspicious microcalcifications are identified. No architectural distortion is identified. There is no skin thickening or retraction. There has been no significant change since the prior study. BI/SCRN MAMM (CAD)W/KELLEN BILAT IMPRESSION: No mammographic signs of malignancy. Routine yearly mammograms recommended. ASSESSMENT CATEGORY: BIRADS Category 1: Negative. A letter regarding these results will be sent to the patient by the facility within 30 days. FOLLOW UP RECOMMENDATION: Yearly follow up mammogram recommended. (A) Approximately 10% of breast cancers are not detected by mammography. A normal mammogram should not delay biopsy of a clinically suspicious abnormality. Electronically Signed: Willy Mcduffie MD at 17:49 EST ,
== END | disposition home or self-care (01) ==
LOC: OPBI 07:49
PROVIDERS: PCP Internal Medicine; Referring Provider Internal Medicine; Visit Provider Internal Medicine
DX: Z12.31 Encounter for screening mammogram for malignant neoplasm of breast (principal)
CPT/HCPCS: 77063; 77067

== ENCOUNTER → 2024-07-02 | Outpatient (CLI) | payer BC, SELFPAY ==
--- NOTE | 2024-07-02 08:06 | BI_ITS ---
EXAM: SCRN MAMM (CAD)W/KELLEN BILAT DATE: 07/02/2024 CLINICAL HISTORY: F, Age 64 y/o , BILATERAL SCREEN MAMMOGRAM Routine follow-up. No family history. BREAST CANCER RISK ASSESSMENT: Not assessed. TECHNIQUE: Bilateral screening digital breast tomosynthesis with 2D and 3D images. Computer aided detection. COMPARISON: Prior exam(s) dated May 23, 2023.. FINDINGS: TISSUE DENSITY: The breast tissue is composed of scattered area of fibroglandular density. Bilateral Breast Mammographic Findings: No significant masses, calcifications or other abnormalities are identified. No suspicious masses, areas of developing architectural distortion, or suspicious calcifications. There has been no significant interval change. BI/SCRN MAMM (CAD)W/KELLEN BILAT IMPRESSION: Right Breast: BIRADS 1 NEGATIVE. Left Breast: BIRADS 1 NEGATIVE. OVERALL FINAL ASSESSMENT: BIRADS 1 NEGATIVE RECOMMENDATION: Routine annual follow-up in 1 Year A letter with findings and recommendations will be mailed to the patient. Reading Location: [place] [id number]
--- NOTE | 2024-07-02 08:09 | BD_ITS ---
PROCEDURE: DEXA BONE DENSITY STUDY 07/02/2024 REASON FOR EXAM: F, age 64 y/o . Postmenopausal. TECHNIQUE: DXA scan of the lumbar spine and both hips, using make and model. REFERENCE LINKS: [facility] Adult Positions COMPARISON: Comparison is made with prior study dated March 30, 2022. FINDINGS: BMD and T-SCORES Lumbar spine: 1.048 g/cm2, T-Score 0.0 1.8 change from prior: Loss of 2.2% Left femoral neck: 0.744 g/cm2, T-Score -0.9 Femoral neck comparison data not recommended for monitoring change. Left total hip: 0.906 g/cm2, T-Score -0.3 Change from prior: Improvement by 1.1% Right femoral neck: 0.748 g/cm2, T-Score -0.9 Femoral neck comparison data not recommended for monitoring change. Right total hip: 0.872 g/cm2, T-Score -0.6 Change from prior: Loss of 3.7% Fracture Risk Calculation: FRAX (10-year Fracture Risk) Score: FRAX scores should never be reported in a patient with osteoporosis on DEXA or for any patient that is on bone medication. The patient doesmeet the pharmacological treatment recommendations for prevention of osteoporosis BD/Dexa Bone Density Study IMPRESSION: NORMAL T-SCORES. Recommend follow-up as clinically warranted. Reading Location: [place] [id number]
== END | disposition home or self-care (01) ==
LOC: OPBD 08:05
PROVIDERS: PCP Internal Medicine; Referring Provider Internal Medicine; Visit Provider Internal Medicine
DX: Z12.31 Encounter for screening mammogram for malignant neoplasm of breast (principal); Z78.0 Asymptomatic menopausal state
CPT/HCPCS: 77063; 77067; 77080